=== PATIENT | female | born 1950 | race Caucasian/White ===

== ENCOUNTER 2021-03-10 10:38 | Emergency (ER) | payer MEDICARE ==
[2021-03-10 11:37] VITALS: RESP 18; TEMP 98.8
[2021-03-10 13:29] LABS: Basophils % (A) 1 %; Eosinophils # (A) 0.1 k/uL (0-0.7); Eosinophils % (A) 1 %; Lymphocytes # (A) 1.3 k/uL (1.0-4.8); Lymphocytes % (A) 16 %; MCH 31.3 pg (25.0-35.0); MCHC 32.5 g/dL (31.0-37.0); MCV 96.2 fL (80.0-100.0); Mean Platelet Volume 7.3; Monocytes # (A) 0.3 k/uL (0-1.0); Monocytes % (A) 4 %; Neutrophils # (A) 6.2 k/uL (1.3-7.7); Neutrophils % (A) 78 %; Platelet Count 285 k/uL (150-450); RBC 4.47 m/uL (3.80-5.40); RDW 13.5 % (11.5-15.5); WBC 7.9 k/uL (3.8-10.6)
[2021-03-10 13:46] LABS: ALT 35 U/L (4-34); AST 52 U/L (14-36); African American GFR (CKD) >90 (>60 ml/min/1.73 sqM); Alkaline Phosphatase 76 U/L (38-126); Amylase 75 U/L (30-110); Anion Gap 10 mmol/L; Blood Urea Nitrogen 14 mg/dL (7-17); Calcium 9.7 mg/dL (8.4-10.2); Carbon Dioxide 26 mmol/L (22-30); Chloride 101 mmol/L (98-107); Glucose 102 mg/dL (74-99); Lipase 138 U/L (23-300); Non-African American GFR(CKD) >90 (>60 ml/min/1.73 sqM); Potassium 4.2 mmol/L (3.5-5.1); Sodium 137 mmol/L (137-145); Total Bilirubin 0.7 mg/dL (0.2-1.3); Total Protein 8.9 g/dL (6.3-8.2)
--- NOTE | 2021-03-10 14:12 | XR ---
EXAMINATION TYPE: XR KUB DATE OF EXAM: 03/10/2021 COMPARISON: None INDICATION: Pain TECHNIQUE: Single view abdomen FINDINGS: There is a normal bowel gas pattern. Psoas margins are normal. No organomegaly is present. No suspicious air-fluid levels or differential air-fluid levels are present. No free air is evident. IMPRESSION: 1. Unremarkable Abdomen
--- NOTE | 2021-03-10 14:52 | CT ---
EXAMINATION TYPE: CT abdomen pelvis w con DATE OF EXAM: 03/10/2021 COMPARISON: None INDICATION: Generalized pain and discolored stool. DLP: 668.7 mGycm, Automated exposure control for dose reduction was used. CONTRAST: 100 mL of Isovue 300. Study performed without Oral Contrast TECHNIQUE: Axial images were obtained from above the diaphragm to the pubic rami in the axial plane a t 5 mm thick sections. Reconstructed images are reviewed on the computer in the coronal plane. FINDINGS: Limited CT sections are obtained the lung bases. The lung bases are clear. CT ABDOMEN: Liver: Mild fatty infiltration of the liver Spleen: Normal Pancreas: Normal Adrenal glands: The adrenal glands are normal. Gallbladder: Normal Kidneys: No masses are evident. No hydronephrosis is present. No cysts are present. Delayed images were obtained through the kidneys, which remain unremarkable. Aorta: Normal Inferior vena cava: Normal. CT PELVIS: Loops of bowel within the abdomen and pelvis are normal. Scattered diverticuli within the sigmoid co michael. Studies without oral contrast limiting bowel evaluation. Appendix: Not visualized. No dilated tubular structure or inflammatory changes are evident. Urinary bladder: Normal. Genitourinary structures: Uterus not identified. Adnexal regions are clear. Osseous structures: No suspicious lytic or sclerotic lesions. IMPRESSIONS: 1. Diverticulosis without acute diverticulitis. 2. Mild fatty change in liver.
--- NOTE | 2021-03-10 15:01 | ED ---
General Adult HPI - General Chief complaint: Extremity Problem,Nontraumatic Stated complaint: Pain in whole body Time Seen by Provider: 03/10/21 12:39 Source: patient, RN notes reviewed Mode of arrival: ambulatory Limitations: no limitations - History of Present Illness Initial comments: Patient is a 70-year-old female that presents to emergency room complaining of several complaints one abdominal pain, weight loss and pain in her feet. Patient notes that her family has a history of stomach pain clinic cancer and she googled her symptoms and is said that she had pancreatic cancer so she can emergency room. She noted the pain is constant dull with no alleviating or aggravating factors. Patient was otherwise well-appearing in no apparent distre ss or pain. She denied any chest pain shortness of breath headache nausea vomiting diarrhea constipation fever fatigue chills. - Related Data Allergies Allergy/AdvReac Type Severity Reaction Status Date / Time No Known Allergies Allergy Verified 03/10/21 11:37 Review of Systems ROS Statement: Those systems with pertinent positive or pertinent negative responses have been documented in the HPI. ROS Other: All systems not noted in ROS Statement are negative. Past Medical History History of Any Multi-Drug Resistant Organisms: None Reported Past Surgical History: Hysterectomy Additional Past Surgical History / Comment(s): thyroidectomy Past Psychological History: No Psychological Hx Reported Smoking Status: Never smoker Past Alcohol Use History: Abuse, Daily Past Drug Use History: None Reported General Exam Limitations: no limitations General appearance: alert, in no apparent distress Head exam: Present: atraumatic, normocephalic, normal inspection Eye exam: Present: normal appearance, PERRL, EOMI. Absent: scleral icterus, conjunctival injection, periorbital swelling ENT exam: Present: normal exam, mucous membranes moist Neck exam: Present: normal inspection Respiratory exam: Present: normal lung sounds bilaterally. Absent: respiratory distress, wheezes, rales, rhonchi, stridor Cardiovascular Exam: Present: regular rate, normal rhythm, normal heart sounds. Absent: systolic murmur, diastolic murmur, rubs, gallop, clicks GI/Abdominal exam: Present: soft, normal bowel sounds. Absent: distended, tenderness, guarding, rebound, rigid Extremities exam: Present: normal inspection, full ROM, normal capillary refill. Absent: tenderness, pedal edema, joint swelling, calf tenderness Neurological exam: Present: alert, oriented X3 Psychiatric exam: Present: normal affect, normal mood Skin exam: Present: warm, dry, intact, normal color. Absent: rash Course Vital Signs 03/10/21 03/10/21 11:32 12:37 Temperature 98.8 F Pulse Rate 84 Respiratory 18 18 Rate Blood Pressure 157/95 O2 Sat by Pulse 99 Oximetry Medical Decision Making - Medical Decision Making [age] female complaining of abdominal pain stating that she thinks she might have pain. Cancer. Labs, CT of the abdomen and pelvis, be ordered. Labs unremarkable. Computed tomography scan shows diverticulosis without diverticulitis and mild fatty changes in the liver. Case discussed with Dr. Morris, patient discharge home with follow-up primary care. - Lab Data Result diagrams: 03/10/21 13:03 03/10/21 13:03 Lab Results 03/10/21 03/10/21 Range/Units 13:03 13:03 WBC 7.9 (3.8-10.6) k/uL RBC 4.47 (3.80-5.40) m/uL Hgb 14.0 (11.4-16.0) gm/dL Hct 43.0 (34.0-46.0) % MCV 96.2 (80.0-100.0) fL MCH 31.3 (25.0-35.0) pg MCHC 32.5 (31.0-37.0) g/dL RDW 13.5 (11.5-15.5) % Plt Count 285 (150-450) k/uL MPV 7.3 Neutrophils % 78 % Lymphocytes % 16 % Monocytes % 4 % Eosinophils % 1 % Basophils % 1 % Neutrophils # 6.2 (1.3-7.7) k/uL Lymphocytes # 1.3 (1.0-4.8) k/uL Monocytes # 0.3 (0-1.0) k/uL Eosinophils # 0.1 (0-0.7) k/uL Basophils # 0.0 (0-0.2) k/uL Sodium 137 (137-145) mmol/L Potassium 4.2 (3.5-5.1) mmol/L Chloride 101 (98-107) mmol/L Carbon Dioxide 26 (22-30) mmol/L Anion Gap 10 mmol/L BUN 14 (7-17) mg/dL Creatinine 0.65 (0.52-1.04) mg/dL Est GFR (CKD-EPI)AfAm >90 (>60 ml/min/1.73 sqM) Est GFR (CKD-EPI)NonAf >90 (>60 ml/min/1.73 sqM) Glucose 102 H (74-99) mg/dL Calcium 9.7 (8.4-10.2) mg/dL Total Bilirubin 0.7 (0.2-1.3) mg/dL AST 52 H (14-36) U/L ALT 35 H (4-34) U/L Alkaline Phosphatase 76 (38-126) U/L Total Protein 8.9 H (6.3-8.2) g/dL Albumin 5.0 (3.5-5.0) g/dL Amylase 75 (30-110) U/L Lipase 138 (23-300) U/L - Radiology Data Radiology results: report reviewed, image reviewed CT of the abdomen and pelvis: Diverticulosis without acute diverticulitis. Mild fatty changes in the liver. KUB: Unremarkable study of the abdomen. Disposition Clinical Impression: Abdominal pain Disposition: HOME SELF-CARE Condition: Stable Instructions (If sedation given, give patient instructions): Abdominal Pain (ED) Additional Instructions: Please return to the Emergency Department if symptoms worsen or any other concerns. Follow-up primary care 1-2 days. Increase oral fluids. Is patient prescribed a controlled substance at d/c from ED?: No Referrals: None,Stated [Primary Care Provider] - 1-2 days Time of Disposition: 15:01
[2021-03-10 15:21] VITALS: BP 155/88; PULSE 78
== END 2021-03-10 15:21 | disposition home or self-care (01) ==
LOC: EC 10:38
DX: R10.9 Unspecified abdominal pain (principal); R63.4 Abnormal weight loss; M79.672 Pain in left foot; M79.671 Pain in right foot
CPT/HCPCS: 36415; 80053; 82150; 83690; 85025; 74018; 74177; 99284; Q9967